=== PATIENT | male | born 1990 | race Caucasian/White ===

== ENCOUNTER 2019-08-13 15:38 | Emergency (ER) | payer SELFPAY ==
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
[2019-08-13] MEDS ORDERED: Acetaminophen TAB* 325 MG PO ONE (15:54)
[2019-08-13] MEDS ORDERED: Ibuprofen TAB* 600 MG PO ONE (15:54)
--- OUTSIDE RECORDS SUMMARY | 2019-08-13 16:14 | XMS REPORT | Summary of Care ---
:1990 Author Organization [facility] Address [address] [place] [address] Care Team Providers Name Role Phone Prescribed, Self Primary Care Provider Unavailable Reason for Visit Reason Comments Hematuria passing air in urine Encounter Details Date Type Department Care Team Description 07/13/2019 Office Visit [facility] Lesia Blanton, Urinary tract [address] [place] infection symptoms [place] [id number] (Primary Dx) [phone] [place] [address] Allergies No Known Allergiesdocumented as of this encounter (statuses as of 07/18/2019) Medications Not on filedocumented as of this encounter (statuses as of 07/18/2019) Active Problems Not on filedocumented as of this encounter (statuses as of 07/18/2019) Social History Tobacco Use Types Packs/Day Years Used Date Never Assessed Sex Assigned at Date Recorded Not on file documented as of this encounter Last Filed Vital Signs Not on filedocumented in this encounter Progress Notes Lesia Blanton FNP - 07/13/2019 5:50 PM ESTPATIENT: Pedro Mix : 1990 DATE OF SERVICE: 07/18/2019 Pedro presents to the walk in clinic with complaints of blood in urine, sharp abdominal pain and gas passing with his urine stream. Advised that abdominal pain and air passing from his urethra with urination and not symptoms that we can effectively evaluate in the walk in clinic. He was advised to goto the ER for further evaluation. Author: MEGGAN Clayton 07/18/2019 09:06. documented in this encounter Plan of Treatment Health Maintenance Due Date Last Done Comments DTaP/Tdap/Td Vaccines (1 - Tdap) 12/31/1998 DEPRESSION SCREENING 2000 HIV SCREENING 12/31/2002 INFLUENZA VACCINE (#1) 2019 HEPATITIS A IMMUNIZATION SERIES Aged Out No longer eligible based on patient's age to complete this topic HPV IMMUNIZATION SERIES Aged Out No longer eligible based on patient's age to complete this topic MENINGOCOCCAL VACCINE IMM Aged Out No longer eligible based on patient's age to complete this topic PNEUMOCOCCAL 0-64 YRS Aged Out No longer eligible based on patient's age to complete this topic documented as of this encounter Results Not on filedocumented in this encounter Visit Diagnoses Diagnosis Urinary tract infection symptoms documented in this encounter
--- OUTSIDE RECORDS SUMMARY | 2019-08-13 16:14 | XMS REPORT | Summary of Care ---
:1990 Author Organization [facility] Address [address] [place] [address] Care Team Providers Name Role Phone Prescribed, Self Primary Care Provider Unavailable Reason for Visit Reason Comments Urinary Tract Infection Encounter Details Date Type Department Care Team Description 07/13/2019 Emergency [facility] Emergency Department Emergency [address] [place] [address] Allergies No Known Allergiesdocumented as of this encounter (statuses as of 07/14/2019) Medications Not on filedocumented as of this encounter (statuses as of 07/14/2019) Active Problems Not on filedocumented as of this encounter (statuses as of 07/14/2019) Social History Tobacco Use Types Packs/Day Years Used Date Never Assessed Sex Assigned at Date Recorded Not on file documented as of this encounter Last Filed Vital Signs Vital Sign Reading Time Taken Comments Blood Pressure 123/67 07/13/2019 9:46 PM EST Pulse 71 07/13/2019 9:46 PM EST Temperature 37.1 07/13/2019 8:22 PM EST C (98.7 F) Respiratory Rate 18 07/13/2019 9:46 PM EST Oxygen Saturation 99% 07/13/2019 9:46 PM EST Inhaled Oxygen Concentration - - Weight - - Height - - Body Mass Index - - documented in this encounter Discharge Instructions Melissa Agee PA - 07/13/2019Take antibiotic as directed until it is gone, will call with results May use OTC Pyridium for the next 2 days to provide relief from burning with urination, may turn your urine orange Drink plenty of clear fluids: water Drinking cranberry juice may help Warm moist compresses may help Follow-up with PCP as discussed Return to the emergency department or call if your symptoms worsen or you have any other concerns: fever, worsening pain, inability to tolerate oral intake documented in this encounter Plan of Treatment [...] this topic documented as of this encounter Procedures Procedure Name Priority Date/Time Associated Comments Diagnosis GC/CHLAMYDIA DNA STAT 07/13/2019 9:39 PM Results for this PROBE EST procedure are in the results section. URINALYSIS (LAB) STAT 07/13/2019 9:39 PM Results for this WITH REFLEX CULTURE EST procedure are in the results section. documented in this encounter Results GC/CHLAMYDIA PCR ASSAY (07/13/2019 9:39 PM EST) Chlamydia trachomatis Negative Negative [facility] Neisseria gonorrhoeae Negative Negative [facility] Specimen Urogenital/Extragenital - Urine specimen (specimen) Narrative Performed At This assay has not been evaluated in patients less [facility] than 14 years of age, in women, or in patients with a history of hysterectomy. The assay should not be used for the evaluation of suspected sexual abuse or for other medico-legal indications. Performing Organization Address City/State/Zipcode Phone Number [facility] [address] [place] [address] URINALYSIS (LAB) WITH REFLEX CULTURE (07/13/2019 9:39 PM EST) Urine Color Yellow Yellow [facility] Urine Appearance Clear Clear [facility] Urine Glucose Negative Negative mg/dl [facility] Urine Bilirubin Negative Negative [facility] Urine Ketones Negative Negative [facility] Urine Specific 1.010 1.005 - 1.030 [facility] Urine Blood Negative Negative [facility] Urine Ph 7.0 5.0 - 8.0 [facility] Urine Protein Negative Negative mg/dl [facility] Urine Urobilinogen 1.0 0.2 - 1.0 E.U./DL [facility] Urine Nitrite Negative Negative [facility] Urine Leukocytes Negative Negative [facility] Specimen Urine - Urine specimen obtained by clean catch procedure (specimen) Performing Organization Address City/State/Zipcode Phone Number [facility] [address] [place] [address] documented in this encounter Visit Diagnoses Diagnosis Urinary tract infection without hematuria, site unspecified documented in this encounter
--- OUTSIDE RECORDS SUMMARY | 2019-08-13 16:14 | XMS REPORT | Continuity of Care Document ---
:1990 External Reference #:[id number] Author Name Katelin Hernandez NP (transmitted by agent of provider Corry Morgan) Address [address] [place] [address] Care Team Providers Name Role Phone Patient's Choice Care Team Information Consumer Education Specialist Unavailable [place] Prior-Auth - e Care Team Information Consumer Education Specialist [phone] Problems Active Problems Provider Date Constipation Katelin Hernandez NP Onset: 07/24/2019 Abdominal pain Katelin Hernandez NP Onset: 07/24/2019 Urinary tract infectious disease Katelin Hernandez NP Onset: 07/24/2019 Social History Type Date Description Comments Sex Unknown ETOH Use Consumes liquor 3 times per day Tobacco Use Start: Unknown Heavy tobacco smoker (more than 10 cigarettes/day) Recreational Drug Use Denies Drug Use Smoking Status Reviewed: 07/24/19 Heavy tobacco smoker (more than 10 cigarettes/day) Exercise Type/Frequency Walks daily Allergies, Adverse Reactions, Alerts Description No Known Drug Allergies Medications Active Medications SIG Qnty Indications Ordering Provider Date Miralax please take 17 357gm K59.00 Katelin Pantoja 07/24/2019 [id number] Powder grams in a drink NAVEEN Hernandez of your choice. one/two drinks as directed. History Medications No Active Medications Unknown 07/24/2019 - 07/24/2019 Immunizations Description No Information Available Vital Signs Date Vital Result Comment 07/24/2019 3:28pm Height 72 inches 6'0" Weight 150.00 lb pt stated Heart Rate 70 /min BP Systolic 109 mmHg BP Diastolic 67 mmHg Respiratory Rate 20 /min O2 % BldC Oximetry 98 % BMI (Body Mass Index) 20.3 kg/m2 Results Test Acquired Date Facility Test Result H/L Range Note Urinalysis Profile 07/24/2019 [facility] Urine Color Yellow [address] [place] [address] [phone] Urine Appearance Turbid Urine Specific [place] 1.019 Normal 1.010-1.030 Urine pH 7.0 Normal 5-9 Urine Urobilinogen Negative Negative Urine Ketones Negative Negative Urine Protein 1+(30 mg/dL) Abnormal Negative Urine Leukocytes 3+ Abnormal Negative Urine Blood 1+ Abnormal Negative Urine Nitrite Negative Negative Urine Bilirubin Negative Negative Urine Glucose Negative Negative Urine White Blood Cell 3+(>20/hpf) Abnormal Absent Urine Red Blood Cell 3+(>10/hpf) Abnormal Absent Urine Bacteria 1+ Abnormal Absent CBC No Diff 07/24/2019 [facility] White Blood 10.3 10^3/uL Normal 3.5-10.[address] [place] [address] [phone] Red Blood Count 4.71 10^6/uL Normal 4.18-5.48 Hemoglobin 15.5 g/dL Normal 14.0-18.0 Hematocrit 45 % Normal 42-52 Mean Corpuscular Volume 95 fL High 80-94 Mean Corpuscular Hemoglobin 33 pg High 27-31 Mean Corpuscular HGB Conc 35 g/dL Normal 31-36 Red Cell Distribution Width 13 % Normal 10-15 Platelet Count Platelets clumpe <SEE NOTE> 10^3/uL High 150-450 1 Comp Metabolic 07/24/2019 [facility] Sodium 139 mmol/L Normal 135-145 Panel [address] [place] [address] [phone] Potassium 4.8 mmol/L Normal 3.5-5.0 Chloride 105 mmol/L Normal 101-111 Co2 Carbon Dioxide 29 mmol/L Normal 22-32 Anion Gap 5 mmol/L Normal 2-11 Glucose 90 mg/dL Normal 70-100 Blood Urea Nitrogen 17 mg/dL Normal 6-24 Creatinine 0.85 mg/dL Normal 0.67-1.17 BUN/Creatinine Ratio 20.0 Normal 8-20 Calcium 9.9 mg/dL Normal 8.6-10.3 Total Protein 7.0 g/dL Normal 6.4-8.9 Albumin 4.3 g/dL Normal 3.2-5.2 Globulin 2.7 g/dL Normal 2-4 Albumin/Globulin Ratio 1.6 Normal 1-3 Total Bilirubin 0.30 mg/dL Normal 0.2-1.0 Alkaline Phosphatase 59 U/L Normal 34-104 Alt 18 U/L Normal 7-52 Ast 18 U/L Normal 13-39 Egfr Non- 105.1 >60 Egfr 127.2 >60 2 Laboratory test 07/24/2019 [facility] C Reactive 5.45 mg/L Normal <8.[address] [place] [address] [phone] Amylase 59 U/L Normal 29-103 Lipase 24 U/L Normal 11.0-82.0 Erythrocyte Sed Rate 12 mm/Hr Normal 0-14 Liver Function 07/24/2019 [facility] Direct 0.00 mg/dL Low 0.03-0.[address] [place] [address] [phone] Urine Culture And 07/24/2019 [facility] Urine Culture SEE RESULT [address] [place] [address] [phone] 1 Platelets clumped. Unable to perform accurate count. 2 Because ethnic data is not always readily available, this report includes an eGFR for both -Americans and non- Americans. The National Kidney Disease Education Program (NKDEP) does not endorse the use of the MDRD equation for patients that are not between the ages of 18 and 70, are , have extremes of body size, muscle mass, or nutritional status, or are non- or non-. According to the National Kidney Foundation, irrespective of diagnosis, the stage of the disease is based on the level of kidney function: Stage Description GFR(mL/min/1.73 m(2)) 1 Kidney damage with normal or decreased GFR 90 2 Kidney damage with mild decrease in GFR 60-89 3 Moderate decrease in GFR 30-59 4 Severe decrease in GFR 15-29 5 Kidney failure <15 (or dialysis) 3 SEE RESULT BELOW Name: ENRIQUE THOMAS : [address]: Katelin Hernandez FOREIGN EXCHANGE TRADER Acct: [id number] Unit: [id number] AGE: 29 Location: [facility] Re07/24/19 SEX: M Status: REG REF SPEC: [id number] ZOFIA: 07/24/[address]: Katelin Hernandez NP REQ: [id number] RECD: 07/24/19 STATUS: COMP _ SOURCE: URINE SPDESC: ORDERED: Urine Culture Procedure Result Reported Site Urine Culture Final 07/26/19- 946 ML No Growth (<1,000 CFU/mL) * ML - Main Lab . END OF REPORT DEPARTMENT OF PATHOLOGY, [address] [place] [address] Andrew Lewis M.D. Director [facility] # [id number] Procedures Description No Information Available Medical Devices Description No Information Available Encounters Type Date Location Provider Dx Diagnosis Office Visit 07/24/2019 [facility] Katelin Pantoja K59.00 Constipation, 3:10p NAVEEN Hernandez unspecified R10.30 Lower abdominal pain, unspecified N39.0 Urinary tract infection, site not specified Assessments Date Code Description Provider 07/24/2019 K59.00 Constipation Katelin Hernandez NP 07/24/2019 R10.30 Abdominal pain Katelin Hernandez NP 07/24/2019 N39.0 Acute urinary tract infection Katelin Hernandez NP Plan of Treatment 07/24/2019 - Katelin Hernandez NPK59.00 Constipation, unspecifiedNew Medication:Miralax 3350 NF - please take 17 grams in a drink of your choice. one /two drinks as directed.New Xrays:CT Abd/Pel W/Wo, Ordered: 07/24/19R10.30 Lower abdominal pain, unspecifiedNew Xrays:CT Abd/Pel W/Wo, Ordered: N39.0 Urinary tract infection, site not specifiedNew Xrays:CT Abd/Pel W/Wo, Ordered: 07/24/19 Functional Status Description No Information Available Mental Status Description No Information Available Referrals Description No Information Available
--- OUTSIDE RECORDS SUMMARY | 2019-08-13 16:14 | XMS REPORT | Continuity of Care Document ---
:1990 External Reference #:[id number] Author Name Ngozi Sandoval Description No Information Available Social History Type Date Description Comments Sex Unknown Allergies, Adverse Reactions, Alerts Description No Information Available Medications Description No Information Available Immunizations Description No Information Available Vital Signs Description No Information Available Results Description No Information Available Procedures Description No Information Available Medical Devices Description No Information Available Encounters Description No Information Available Assessments Description No Information Available Plan of Treatment Future Appointment(s):07/24/2019 3:10 pm - Katelin Hernandez NP at [facility] Gastroenterology Functional Status Description No Information Available Mental Status Description No Information Available Referrals Description No Information Available
[2019-08-13 17:35] VITALS: BP 108/68
== END 2019-08-13 17:34 | disposition home or self-care (01) ==
LOC: ED 15:38
DX: M25.511 Pain in right shoulder (principal); R07.9 Chest pain, unspecified; V49.40XA Driver injured in collision with unspecified motor vehicles in traffic accident, initial encounter; Y92.410 Unspecified street and highway as the place of occurrence of the external cause
CPT/HCPCS: 71046; 93005; 99282; A9270-GY

== ENCOUNTER 2019-10-26 07:03 | Inpatient (IN) ==
[~2019-10-26 07:03] MED LIST: Dexamethasone IV 4 MG/ML VIAL 1 ml VIAL IV SLOW PU ONE; ERTApenem(*) 1 GM in NS 0.9% 50 ML 50 ML IVPB SCH; Famotidine IV 10 MG/ML 2 ml VIAL (20 mg) IV ONE; Lactated Ringers 1000 ml BAG 1,000 ML IV SCH
[2019-10-26] MEDS ORDERED: Midazolam 2 mg/2 ml VIAL 1 mg/ml 2 ml VIAL (2 mg) ONE (07:13)
[2019-10-26] MEDS ORDERED: fentaNYL 100 mcg/2 ml 50 MCG/ML VIAL ONE ×5 (07:13→17:53)
[2019-10-26] MEDS ORDERED: Propofol 10 MG/ML 20 ML BTL ONE (07:14)
[2019-10-26] MEDS ORDERED: Ondansetron 4 mg VIAL 2 MG/ML 2 ml VIAL ONE (07:14)
[2019-10-26] MEDS ORDERED: Metoclopramide 5 MG/ML VIAL (10 mg) ONE (07:14)
[2019-10-26] MEDS ORDERED: Rocuronium 50 mg VIAL 10 mg/ml 5 ml VIAL (50 mg) ONE ×5 (07:14→18:08)
[2019-10-26] MEDS ORDERED: Lidocaine 2% PF 5 ML VIAL ONE ×2 (07:17→07:58)
[2019-10-26] MEDS ORDERED: Famotidine IV 10 MG/ML 2 ml VIAL (20 mg) ONE (07:24)
[2019-10-26] MEDS ORDERED: Dexamethasone IV 4 MG/ML VIAL 1 ml VIAL ONE (07:24)
[2019-10-26] MEDS ORDERED: Levalbuterol 0.63MG/3ML NEB UNIT OF USE INH ONE ×2 (07:38→07:42)
[2019-10-26] MEDS ORDERED: Lidocaine 2% JELLY 6 ML TOPICAL ONE (07:57)
[2019-10-26] MEDS ORDERED: Succinylcholine 200 mg VIAL 20 mg/ml 10 ml VIAL (200 mg) ONE (07:58)
[2019-10-26] MEDS ORDERED: Iohexol 180 (CONTRAST) 10 ML SDV IV ONE (08:09)
[2019-10-26] MEDS ORDERED: Bupivacaine 0.25% EPI 200,000 30 ML SDV ONE (08:09)
[2019-10-26] MEDS ORDERED: fentaNYL 250 mcg/5 ml 50 MCG/ML 5 ml VIAL (250 MCG) ONE (09:04)
[2019-10-26] MEDS ORDERED: Naloxone 0.4 mg VIAL 0.4 mg/ml 1 ml VIAL IV PRN (10:01)
[2019-10-26] MEDS ORDERED: Ondansetron 4 mg VIAL 2 MG/ML 2 ml VIAL IV PRN ×2 (10:01→19:39)
[2019-10-26] MEDS ORDERED: DiMENhydriNATE IV 50 mg/ml 1 ml VIAL IV PUSH PRN (10:01)
[2019-10-26] MEDS ORDERED: HYDROmorphone 1 MG/1 ML SYRINGE IV PRN (10:01)
[2019-10-26] MEDS ORDERED: Acetaminophen IV 1 GM/100ML 1,000 MG/100 ML VIAL IVPB ONE (10:01)
[2019-10-26] MEDS ORDERED: Propofol 10 mg/ml 100 ML BTL 200 ML ONE ×2 (13:59→16:10)
[2019-10-26] MEDS ORDERED: Propofol 10 mg/ml 100 ML BTL 100 ML ONE ×2 (17:29→17:30)
[2019-10-26] MEDS ORDERED: Acetaminophen IV 1 GM/100ML 100 ML ONE (17:52)
[2019-10-26] MEDS ORDERED: Dexmedetomidine 200 mcg/2 ml 2 ml VIAL (200 mcg) ONE (19:00)
[2019-10-26] MEDS ORDERED: HYDROmorphone 1 MG/1 ML SYRINGE IV SLOW PU PRN (19:41)
[2019-10-26] MEDS: fentaNYL 100 mcg/2 ml 50 MCG/ML VIAL IV PRN ×2 (19:59→20:04)
[2019-10-26] MEDS: Heparin 5000 UNITS/ML VIAL(*) 1 ml vial SUBCUT SCH (23:56)
[2019-10-26] MEDS: Lactated Ringers 1000 ml BAG 1,000 ML IV SCH (23:56)
[2019-10-27 05:15] LABS: ABS Lymphocytes 1.9 10^3/ul (1.0-4.8); ABS Monocytes 0.7 10^3/ul (0-0.8); Eosinophil % 0.1 %; Hematocrit 37 % (42-52); Hemoglobin 12.6 g/dL (14.0-18.0); Lymphocyte % 21.5 %; Mean Corpuscular HGB Conc 34 g/dL (31-36); Mean Corpuscular Hemoglobin 33 pg (27-31); Mean Corpuscular Volume 95 fL (80-94); Mean Platelet Volume 8.7 fL (7.4-10.4); Nucleated Red Blood Cells % 0.1; Platelet Count 158 10^3/uL (150-450); Red Blood Count 3.86 10^6 /uL (4.18-5.48); Red Cell Distribution Width 13 % (10-15)
[2019-10-27 05:32] LABS: BUN/Creatinine Ratio 11.5 (8-20); Calcium 8.9 mg/dL (8.6-10.3); EGFR African American 140.5 (>60); EGFR Non-African American 116.1 (>60); Potassium 3.8 mmol/L (3.5-5.0)
[2019-10-27] MEDS: Heparin 5000 UNITS/ML VIAL(*) 1 ml vial SUBCUT SCH ×2 (05:57→14:36)
[2019-10-27] MEDS: Lactated Ringers 1000 ml BAG 1,000 ML IV SCH ×2 (10:21→20:05)
[2019-10-27] MEDS: oxyCODONE/Acetamin 5/325 mg TAB PO PRN ×2 (15:38→19:45)
[2019-10-28] MEDS: Heparin 5000 UNITS/ML VIAL(*) 1 ml vial SUBCUT SCH ×4 (00:15→21:30)
[2019-10-28] MEDS: Lactated Ringers 1000 ml BAG 1,000 ML IV SCH ×3 (05:57→19:06)
[2019-10-28] MEDS: oxyCODONE/Acetamin 5/325 mg TAB PO PRN ×3 (08:12→19:04)
[2019-10-29] MEDS: Heparin 5000 UNITS/ML VIAL(*) 1 ml vial SUBCUT SCH ×3 (07:21→22:19)
[2019-10-29] MEDS: Amoxicillin/Clavul 875/125 TAB (Augmentin 875 tab) PO SCH ×2 (08:56→22:16)
[2019-10-29] MEDS ORDERED: Lidocaine 2% JELLY 6 ML TOPICAL PRN (14:20)
[2019-10-29] MEDS: oxyCODONE/Acetamin 5/325 mg TAB PO PRN ×2 (14:22→22:16)
[2019-10-30] MEDS: Heparin 5000 UNITS/ML VIAL(*) 1 ml vial SUBCUT SCH (05:32)
[2019-10-30] MEDS: Amoxicillin/Clavul 875/125 TAB (Augmentin 875 tab) PO SCH (09:15)
[2019-10-30 11:12] VITALS: BP 115/67
== END 2019-10-30 12:45 | disposition home or self-care (01) | DRG 950 ==
LOC: AA 07:03 → SSU 21:29
PROVIDERS: ADMIT Surgery; ATTEND Surgery